=== PATIENT | female | born 1950 | race Caucasian/White ===

== ENCOUNTER 2016-09-23 09:00 | Inpatient (IN) | payer MEDICARE, SELFPAY ==
[~2016-09-23] VITALS: Ht 162.6 cm; Wt 85.5 kg
--- NOTE | ~2016-09-23 | DS ---
PATIENT'S NAME: CARLOS ARCOS [facility] AGE: 65 Y [address] ROOM: [address] [place], [place] [address] LOCATION: [facility] ADMIT DATE: 11/04/2016 Discharge Summary DISCHARGE DATE: 11/06/2016 FAMILY PHYSICIAN: Demi Lindsey MD ATTENDING PHYSICIAN: Clinton Becerril ADMITTING DIAGNOSIS: Osteoarthritis, right knee. PROCEDURE: Right total knee arthroplasty. COMORBIDITIES: 1. Depression and anxiety disorder. 2. Hypertension. 3. Hypothyroidism. 4. Hypercholesterolemia. 5. Diabetes type 2. HOSPITAL COURSE: The patient was admitted for total knee arthroplasty. [place] components were used. She had a triathlon asymmetric patella size 32, standard cement cruciate retaining size 5, femoral component X3 size 9-mm bearing, and a size 5 tibial component. Postoperatively, enteric-coated aspirin 325 p.o. daily was started for 30 days for DVT prophylaxis. Postop visit, the patient was feeling well. No nausea. No vomiting. Pain was controlled. Afebrile. Vitals are stable. Hemoglobin A1c was 6.2%. Postop day one, hemoglobin was 9.6. MOISTURE METER OPERATOR intact to the operative right foot. The patient had some issues with over sedation and narcotics were adjusted accordingly. There were some issues with patient self-medicating with her own medication, although she denied despite having pills found in the bed. Postop day 2, EHL intact. Neurovascular intact to the operative right leg. She is participating in PT. Mepilex continued for dressing. Arrangements were made for the patient to be transferred to TCU for continued supervised recovery. She continued to have complaints of poor pain control despite difficulty arousing the patient at time and slurred speech. All indicators of over sedation from pain medications. She was transferred to the TCU for continued supervised recovery. TRANSFER INSTRUCTIONS: Ambulate as tolerated. Continue PT, OT. Follow with Dr. Becerril on 11/06/2016. Blood sugars a.c. and h.s. OT as needed. O2 as needed for sats above 90. TYSON CHAPMAN FOR CLINTON BECERRIL MD PATIENT'S NAME: CAROLS ARCOS [facility] AGE: 65 Y [address] ROOM: [address] [address] LOCATION: G3 ADMIT DATE: 11/04/2016 Discharge Summary DISCHARGE DATE: 11/06/2016 FAMILY PHYSICIAN: Demi Lindsey MD ATTENDING PHYSICIAN: Clinton Becerril/aislinn /[id number] d: 11/12/16 0418 t: 11/18/16 1025, DISCHARGE SUMMARY
--- NOTE | ~2016-09-23 | OR ---
PATIENT'S NAME: CARLOS ARCOS [facility] AGE: 65 Y [address] ROOM: [facility] [place], [place] [address] LOCATION: [facility] ADMIT DATE: 11/04/2016 OR/Procedure Report DISCHARGE DATE: FAMILY PHYSICIAN: Demi Lindsey MD ATTENDING PHYSICIAN: Clinton Brambila SURGEON: Clinton Brambila MD INSPECTOR BALL POINTS: TYSON Owusu DATE OF PROCEDURE: 11/04/2016 PREOPERATIVE DIAGNOSIS: Varus osteoarthritis, right knee. POSTOPERATIVE DIAGNOSIS: Varus osteoarthritis, right knee. OPERATION: [facility] computer navigated tricompartmental cemented right total knee replacement with Baldo triathlon #5; femoral component; #5 tibial tray with a 9 mm X3 spacer and A32 patella. ANESTHESIA: Subarachnoid block. INDICATIONS: This is a 65-year-old female with right knee pain. No longer responsive to nonoperative measures such as steroid injections and radiographic evidence of varus gonarthrosis. DESCRIPTION OF PROCEDURE: The patient was brought to the operating room. When satisfactory spinal anesthesia had been established, her right lower extremity was prepped and draped in an aseptic manner. The skin over the anterior knee was injected with Rohit mix and an anterior incision made and carried down through the subcutaneous fat. Rohit mix was injected into the quadriceps tendon in the medial capsule and quadriceps splitting approach was utilized, so that the patella could be dislocated laterally and everted. The patella was measured at 22 mm and cut down to 14 mm. A 32 size appeared to fit the best. So, the 3 fixation holes were drilled and cut surface of the patella was protected with a trial 829. The distal femur was exposed and the ASM gantry was pinned to it. Hip flexion was registered and the center rotation of the hip was found. The intercondylar notch centered and AP femoral angle and medial and lateral femoral condyles were all registered. The alignment jig was placed and cut planned for 0 degrees of varus valgus with 5 degrees of flexion and 8 mm depth of cut. The distal femoral cutting block was pinned in place. The distal femoral cut was made. The footed sizing jig was placed against the cut surface of the femur and with 3 degrees of external rotation. The 2 provisional fixation holes were drilled. # 5 cutting block was selected and it was impacted home. The anterior femoral cut was made and it was satisfactory, so the anterior chamfer and posterior femoral chamfer cuts were all made. The tibial articular surface was exposed and soft tissues debrided. The ASM gantry was pinned to the tibial articular PATIENT'S NAME: CARLOS ARCOS [facility] AGE: 65 Y [address] ROOM: [place] [address] LOCATION: [facility] ADMIT DATE: 11/04/2016 OR/Procedure Report DISCHARGE DATE: FAMILY PHYSICIAN: Demi Lindsey MD ATTENDING PHYSICIAN: Clinton Brambila surface and the center of the tibia and midline of the tibia, medial and lateral tibial plateaus, and medial and lateral malleolar were all registered. The alignment jig was placed and cut planned for 9 degrees depth of cut off the lateral tibial plateau at 3 degrees of posterior slope and 0 degrees of varus and valgus. The cutting block was pinned in place and the tibial cut was made. The 9 mm spacer shipping checker was placed in the knee, did not seem to extend fully, so the tibia was recut 2 mm deeper. The spacer block was placed and the knee extended fully. The cut surface of the tibia was exposed and #5 tibial template appeared to fit the best. It was pinned in place, attempting to maintain rotation with the anterior tibial tubercle on the medial aspect of the centering lines. The tower was clipped onto the template and the plunger impacted home. Trial reduction was performed with a 9 mm spacer and the knee extended fully and was stable with varus and valgus stressing. The femoral lug holes were drilled and the trials removed. Cut bony surfaces were irrigated and dried while cement was mixed. The tibial tray was cemented into place 1st and excess cement removed while soft with a [place] elevator. 9 mm X3 spacer was impacted home. The femoral and patellar components were then cemented into place and excess cement removed while soft with a [place] elevator. It should be noted that prior to cementing the components, posterior capsule was injected with Rohit mix and hemostasis of the posterior capsule was achieved with the Aquamantys. Once the cement had set, excess cement was removed with an osteotome and mallet. The knee was taken through range of motion and the patella tracked well without any thumb pressure. The wound was irrigated copiously with saline and closed in layers using a running #1 Vicryl for the quadriceps tendon. The medial capsule was closed with a running #1 Vicryl by TYSON Thomas, and closed subcutaneous fat with a running 2-0 Vicryl and the skin closed with skin susan. Dressings were applied and the patient sent to the recovery area having tolerated the procedure well. MD BRYAN POLANCO/aislinn /[id number] d: 11/04/16 1716 t: 11/11/16 1134, OPERATIVE SUMMARY
--- NOTE | ~2016-09-23 | DS ---
PATIENT'S NAME: CARLOS ARCOS [facility] AGE: 65 Y [address] ROOM: [address] [place], [place] [address] LOCATION: [facility] ADMIT DATE: 11/04/2016 Discharge Summary DISCHARGE DATE: 11/06/2016 FAMILY PHYSICIAN: Demi Lindsey MD ATTENDING PHYSICIAN: Clinton Becerril ADMITTING DIAGNOSIS: Osteoarthritis, right knee. PROCEDURE: Right total knee arthroplasty. COMORBIDITIES: 1. Depression and anxiety disorder. 2. Hypertension. 3. Hypothyroidism. 4. Hypercholesterolemia. 5. Diabetes type 2. HOSPITAL COURSE: The patient was admitted for total knee arthroplasty. [place] components were used. She had a triathlon asymmetric patella size 32, standard cement cruciate retaining size 5, femoral component X3 size 9-mm bearing, and a size 5 tibial component. Postoperatively, enteric-coated aspirin 325 p.o. daily was started for 30 days for DVT prophylaxis. Postop visit, the patient was feeling well. No nausea. No vomiting. Pain was controlled. Afebrile. Vitals are stable. Hemoglobin A1c was 6.2%. Postop day one, hemoglobin was 9.6. GASOLINE PUMP MECHANIC intact to the operative right foot. The patient had some issues with over sedation and narcotics were adjusted accordingly. There were some issues with patient self-medicating with her own medication, although she denied despite having pills found in the bed. Postop day 2, EHL intact. Neurovascular intact to the operative right leg. She is participating in PT. Mepilex continued for dressing. Arrangements were made for the patient to be transferred to TCU for continued supervised recovery. She continued to have complaints of poor pain control despite difficulty arousing the patient at time and slurred speech. All indicators of over sedation from pain medications. She was transferred to the TCU for continued supervised recovery. TRANSFER INSTRUCTIONS: Ambulate as tolerated. Continue PT, OT. Follow with Dr. Becerril on 11/06/2016. Blood sugars a.c. and h.s. OT as needed. O2 as needed for sats above 90. TYSON CHAPMAN FOR CLINTON BECERRIL MD PATIENT'S NAME: CARLOS ARCOS [facility] AGE: 65 Y [address] ROOM: [address] [address] LOCATION: G3 ADMIT DATE: 11/04/2016 Discharge Summary DISCHARGE DATE: 11/06/2016 FAMILY PHYSICIAN: Demi Lindsey MD ATTENDING PHYSICIAN: Clinton Becerril/aislinn /[id number] d: 11/12/16 0418 t: 11/18/16 1245, DISCHARGE SUMMARY
[2016-10-12] MEDS ORDERED: MUCINEX D ER 61 EACH PO (10:24)
[2016-10-12] MEDS ORDERED: [UNRECOGNIZED DRUG - OTHER] PO (10:25)
[2016-10-12] MEDS ORDERED: LEVOTHROID (S100 MCG PO (10:25)
[2016-10-12] MEDS ORDERED: SINGULAIR10 MG PO (10:27)
[2016-10-12] MEDS ORDERED: KLONOPIN1 MG PO (10:27)
[2016-10-12] MEDS ORDERED: FLUVOXAMINE MA100 MG PO (10:27)
[2016-10-12] MEDS ORDERED: LAMICTAL200 MG PO (10:28)
[2016-10-12] MEDS ORDERED: PROZAC20 MG PO (10:30)
[2016-10-12] MEDS ORDERED: CALAN SR GENER240 MG PO (10:31)
[2016-10-12] MEDS ORDERED: ZOCOR40 MG PO (10:31)
[2016-10-12] MEDS ORDERED: SEROQUEL300 MG PO (10:32)
[2016-10-12] MEDS ORDERED: OMEPRAZOLE40 MG PO (10:32)
[2016-10-12] MEDS ORDERED: TOPAMAX25 MG PO (10:35)
[2016-10-12] MEDS ORDERED: AMBIEN10 MG PO (10:36)
[2016-10-12] MEDS ORDERED: ULTRAM50 MG PO (10:37)
[2016-10-12] MEDS ORDERED: ADVIL200 MG PO (10:38)
[2016-10-12] MEDS ORDERED: MOBIC15 MG PO (10:38)
[2016-10-12] MEDS ORDERED: TYLENOL EXTRA500 MG PO (10:39)
[2016-10-12] MEDS ORDERED: VITAMIN C1000 MG PO (10:42)
[2016-10-12] MEDS ORDERED: MULTI VITAMIN1 EACH PO (10:43)
[2016-10-12] MEDS ORDERED: CALCIUM 600 +1 EAC6 PO (10:43)
[2016-10-12] MEDS ORDERED: MILK OF MA400 MG/5 M PO (11:22)
[2016-11-04] MEDS ORDERED: NASACORT16.9 ML NOSE (06:53)
[2016-11-04] MEDS ORDERED: BENADRYL25 MG PO (15:10)
[2016-11-04] MEDS ORDERED: AIRBORNE TABLE1 EACH PO (15:11)
[2016-11-04] MEDS ORDERED: SALINE NASAL M126 ML NOSE (15:13)
--- NOTE | 2016-11-04 17:52 | NUR ---
Significant Event: PT ALERT AND ORIENTED. ARRIVED ON FLOOR AT 1045 FROM PACU. PT IS ANXIOUS MOST OF THE TIME. IS FUSSY ABOUT HER MEDS. WILL ONLY TAKE MEDS THAT A PERSCRIPTIONS. NO OVER THE COUNTER ONES. SHE CAN USE HER OWN SALINE NASAL SPRAY AND HER AIRBORNE IMMUNE MEDS. PT UP IN THE RECLINER THIS AFTERNOON. VOIDED X 2. ICE TO KNEE. LOTS OF PAIN AROUND 1730. VALIUM AND IV DILUADID GIEVN. TRANSFERS WELL. Follow up:
[2016-11-05 04:56] LABS: HEMATOCRIT 31.4 % (33.0-46.0); HEMOGLOBIN 9.6 g/dL (10.0-15.0)
--- NOTE | 2016-11-05 05:37 | NUR ---
Patient reported pain on surgical site and a little numbness on right foot throughout the shift. VS stable this shift. She was able to move from bed to commode 3X during shift with minimal assistance. Pain pills (1000mg tylentol and 5mg Roxicodone given at 0500 this am. Patient was not able to fall asleep till about 0100 this morning. RT placed patient on 2L of O2 for sats in the 70s this morning. Difficult pain control: multiple dilaudid
--- NOTE | 2016-11-05 06:08 | NUR ---
I have reviewed all of SN Patric's charting on this patient and I agree with it.
--- NOTE | 2016-11-05 12:31 | NUR ---
RECEIVED REFERRAL TO [facility] FOR PATIENT TO GO TO TCU TOMORROW FOR ONE WEEK. I SPOKE TO CAROL ON TCU SHE IS AWARE THAT DR. CAMPUZANO WOULD LIKE FOR PATIENT TO GO TO TCU TOMORROW. SHE REPORTS THAT THEY WILL HAVE A BED FOR PATIENT TOMORROW AT 1300. I SPOKE TO CARLOS AND PRESENTED TO HER THAT DR. LOZANO FEELS SHE WOULD BENEFIT FROM SHORT STAY ON TCU. PATIENT TELLS ME THAT SHE REALLY WANTS TO GO HOME BUT SHE IS WILLING TO GO TO TCU. I SPOKE TO Susie MEHTA AND UPDATED HER OF THE TIME PATIENT CAN GO TO TCU TOMORROW.
--- NOTE | 2016-11-05 14:35 | NUR ---
NOTIFIED PATIENT'S SPOUSE NATALIE AND UPDATED HIM THAT RAFIA WILL BE GOING TO TCU. HE IS IN AGREEMENT TO THIS PLAN.
--- NOTE | 2016-11-05 20:06 | NUR ---
Significant Event: VERY SLEEPY HTIS AM, QUESTION IF PATIENT WAS SELF MEDICATING, RENETTA AUGUSTINE PERSONAL FOUND HER PURSE WITH NEDS IN IT,,,HAD TORADOL 15 MG AT 1130, VALIUM 2.5 MG PO AT 1550, ROXICODONE 5 MG 1 TAB AT 1730..., DRSG TO KNEE D/I, CSM GOOD ICE ON....REFUSED TO SIT IN RECLINER, YELLS/SCREAMS WHEN GETTING HER OUT OF BED,,,,HAD DUL SUPP AND MOM AT 1730... Follow up:
--- NOTE | 2016-11-06 03:15 | NUR ---
Shift Summary: Patient has not had any pain medication this shift. She was slightly drowsy at the beginning of the shift and and only had pain with movement. She wanted to take all of her scheduled bedtime meds including her ambien over having a pain medication. She has slept very well all shift, but does require 2L O2 for sats in lower 80s on room air when sleeping. Patient needs a lot of verbal cues and encouragement with transfers and ambulation. Is a two assist. She gets emotional over everything. Has had 2 large BM's this shift. Going to TCU at 1100 today.
--- NOTE | 2016-11-06 06:49 | NUR ---
[id number] Supervised [facility] Intelligence Manager.
--- NOTE | 2016-11-06 08:39 | NUR ---
Patient had a R) total knee done on 11/04/[address]ambila. Dressing C/D/I. EZwrap Ice applied. WBAT to R) leg. Up with 2 assist with walker to bedside commmode. CSM WNL. 2L/O2 for O2 sats are in lower 80's on RA. No difficulty voiding. Had large BM 11/06/16. Patient needs lots of verbal cues and encouragement with transfers and ambulation.
== END 2016-11-06 13:39 | DRG 470 ==
LOC: G3N 11-04 05:50
PROVIDERS: ADMIT Orthopaedic Surgery
PROC: 0SRC0J9 Replacement of Right Knee Joint with Synthetic Substitute, Cemented, Open Approach (ICD-10-PCS; principal; 2016-11-04)
PROC: 8E0YXBZ Computer Assisted Procedure of Lower Extremity (ICD-10-PCS; principal; 2016-11-04)
DX: M17.11 Unilateral primary osteoarthritis, right knee (principal); I10 Essential (primary) hypertension; M21.161 Varus deformity, not elsewhere classified, right knee; E78.5 Hyperlipidemia, unspecified; E11.9 Type 2 diabetes mellitus without complications; E03.9 Hypothyroidism, unspecified; M54.5 Low back pain; Z96.652 Presence of left artificial knee joint; F32.9 Major depressive disorder, single episode, unspecified; F41.9 Anxiety disorder, unspecified; R40.0 Somnolence; R47.81 Slurred speech; T40.2X5A Adverse effect of other opioids, initial encounter; J30.2 Other seasonal allergic rhinitis; Z79.899 Other long term (current) drug therapy; E66.9 Obesity, unspecified; Z68.32 Body mass index [BMI] 32.0-32.9, adult; K21.9 Gastro-esophageal reflux disease without esophagitis; K59.00 Constipation, unspecified
CPT/HCPCS: C1713; C1776; J0171; J0690; J0735; J1170; J1885; J2001; J2250; J2405; J2795; J7030; J7040; J7120

== ENCOUNTER → 2016-10-22 | Outpatient (CLI) | payer MEDICARE ==
[~2016-10-22] MED LIST: ADVIL200 MG PO; AIRBORNE TABLE1 EACH PO; AMBIEN10 MG PO; ASPIRIN325 MG PO; BENADRYL25 MG PO; CALAN SR GENER240 MG PO; CALCIUM 600 +1 EAC6 PO; DOXYCYCLINE100 MG PO; FLUVOXAMINE MA100 MG PO; KLONOPIN1 MG PO; LAMICTAL200 MG PO; LEVOTHROID (S100 MCG PO; MILK OF MA400 MG/5 M PO; MOBIC15 MG PO; MUCINEX D ER 61 EACH PO; MULTI VITAMIN1 EACH PO; NASACORT16.9 ML NOSE; NORCO 5-325 TA1 EACH PO; OMEPRAZOLE40 MG PO; PROZAC20 MG PO; SALINE NASAL M126 ML NOSE; SEROQUEL300 MG PO; SINGULAIR10 MG PO; TOPAMAX25 MG PO; TYLENOL EXTRA500 MG PO; ULTRAM50 MG PO; VALIUM5 MG PO; VITAMIN C1000 MG PO; ZOCOR40 MG PO; [UNRECOGNIZED DRUG - OTHER] PO
== END | disposition disaster alternative care site (69) ==
LOC: GNJRC 10:13
DX: Z01.812 Encounter for preprocedural laboratory examination (principal); Z96.651 Presence of right artificial knee joint

== ENCOUNTER 2016-11-06 14:24 | Inpatient (IN) | payer MEDICARE, OTHER ==
[~2016-11-06] VITALS: Ht 162.6 cm; Wt 89.4 kg
--- NOTE | ~2016-11-06 | DS ---
PATIENT'S NAME: CARLOS ARCOS [facility] AGE: 65 Y [address] ROOM: [address] [place], [place] [address] LOCATION: [facility] ADMIT DATE: 11/04/2016 Discharge Summary DISCHARGE DATE: 11/06/2016 FAMILY PHYSICIAN: Demi Lindsey MD ATTENDING PHYSICIAN: Clinton Becerril ADMITTING DIAGNOSIS: Osteoarthritis, right knee. PROCEDURE: Right total knee arthroplasty. COMORBIDITIES: 1. Depression and anxiety disorder. 2. Hypertension. 3. Hypothyroidism. 4. Hypercholesterolemia. 5. Diabetes type 2. HOSPITAL COURSE: The patient was admitted for total knee arthroplasty. [place] components were used. She had a triathlon asymmetric patella size 32, standard cement cruciate retaining size 5, femoral component X3 size 9-mm bearing, and a size 5 tibial component. Postoperatively, enteric-coated aspirin 325 p.o. daily was started for 30 days for DVT prophylaxis. Postop visit, the patient was feeling well. No nausea. No vomiting. Pain was controlled. Afebrile. Vitals are stable. Hemoglobin A1c was 6.2%. Postop day one, hemoglobin was 9.6. CATHODE RAY TUBE ASSEMBLER intact to the operative right foot. The patient had some issues with over sedation and narcotics were adjusted accordingly. There were some issues with patient self-medicating with her own medication, although she denied despite having pills found in the bed. Postop day 2, EHL intact. Neurovascular intact to the operative right leg. She is participating in PT. Mepilex continued for dressing. Arrangements were made for the patient to be transferred to TCU for continued supervised recovery. She continued to have complaints of poor pain control despite difficulty arousing the patient at time and slurred speech. All indicators of over sedation from pain medications. She was transferred to the TCU for continued supervised recovery. TRANSFER INSTRUCTIONS: Ambulate as tolerated. Continue PT, OT. Follow with Dr. Becerril on 11/06/2016. Blood sugars a.c. and h.s. OT as needed. O2 as needed for sats above 90. TYSON CHAPMAN FOR CLINTON BECERRIL MD PATIENT'S NAME: CARLOS ARCOS [facility] AGE: 65 Y [address] ROOM: [address] [address] LOCATION: G3 ADMIT DATE: 11/04/2016 Discharge Summary DISCHARGE DATE: 11/06/2016 FAMILY PHYSICIAN: Demi Lindsey MD ATTENDING PHYSICIAN: Clinton Becerril/aislinn /[id number] d: 11/12/16 0418 t: 11/18/16 1025, DISCHARGE SUMMARY
--- NOTE | ~2016-11-06 | DS ---
PATIENT'S NAME: CARLOS ARCOS [facility] AGE: 65 Y [address] ROOM: [address] [place], [place] [address] LOCATION: [facility] ADMIT DATE: 11/04/2016 Discharge Summary DISCHARGE DATE: 11/06/2016 FAMILY PHYSICIAN: Demi Lindsey MD ATTENDING PHYSICIAN: Clinton Becerril ADMITTING DIAGNOSIS: Osteoarthritis, right knee. PROCEDURE: Right total knee arthroplasty. COMORBIDITIES: 1. Depression and anxiety disorder. 2. Hypertension. 3. Hypothyroidism. 4. Hypercholesterolemia. 5. Diabetes type 2. HOSPITAL COURSE: The patient was admitted for total knee arthroplasty. [place] components were used. She had a triathlon asymmetric patella size 32, standard cement cruciate retaining size 5, femoral component X3 size 9-mm bearing, and a size 5 tibial component. Postoperatively, enteric-coated aspirin 325 p.o. daily was started for 30 days for DVT prophylaxis. Postop visit, the patient was feeling well. No nausea. No vomiting. Pain was controlled. Afebrile. Vitals are stable. Hemoglobin A1c was 6.2%. Postop day one, hemoglobin was 9.6. GRADUATE CIVIL ENGINEER intact to the operative right foot. The patient had some issues with over sedation and narcotics were adjusted accordingly. There were some issues with patient self-medicating with her own medication, although she denied despite having pills found in the bed. Postop day 2, EHL intact. Neurovascular intact to the operative right leg. She is participating in PT. Mepilex continued for dressing. Arrangements were made for the patient to be transferred to TCU for continued supervised recovery. She continued to have complaints of poor pain control despite difficulty arousing the patient at time and slurred speech. All indicators of over sedation from pain medications. She was transferred to the TCU for continued supervised recovery. TRANSFER INSTRUCTIONS: Ambulate as tolerated. Continue PT, OT. Follow with Dr. Becerril on 11/06/2016. Blood sugars a.c. and h.s. OT as needed. O2 as needed for sats above 90. TYSON CHAPMAN FOR CLINTON BECERRIL MD PATIENT'S NAME: CARLOS ARCOS [facility] AGE: 65 Y [address] ROOM: [address] [address] LOCATION: G3 ADMIT DATE: 11/04/2016 Discharge Summary DISCHARGE DATE: 11/06/2016 FAMILY PHYSICIAN: Demi Lindsey MD ATTENDING PHYSICIAN: Clinton Becerril/aislinn /[id number] d: 11/12/16 0418 t: 11/18/16 1245, DISCHARGE SUMMARY
--- NOTE | ~2016-11-06 | DS ---
PATIENT'S NAME: CARLOS ARCOS [facility] AGE: 65 Y [address] ROOM: [address] [place], [place] [address] LOCATION: [facility] ADMIT DATE: 11/04/2016 Discharge Summary DISCHARGE DATE: 11/06/2016 FAMILY PHYSICIAN: Demi Lindsey MD ATTENDING PHYSICIAN: Clinton Becerril ADMITTING DIAGNOSIS: Osteoarthritis, right knee. PROCEDURE: Right total knee arthroplasty. COMORBIDITIES: 1. Depression and anxiety disorder. 2. Hypertension. 3. Hypothyroidism. 4. Hypercholesterolemia. 5. Diabetes type 2. HOSPITAL COURSE: The patient was admitted for total knee arthroplasty. [place] components were used. She had a triathlon asymmetric patella size 32, standard cement cruciate retaining size 5, femoral component X3 size 9-mm bearing, and a size 5 tibial component. Postoperatively, enteric-coated aspirin 325 p.o. daily was started for 30 days for DVT prophylaxis. Postop visit, the patient was feeling well. No nausea. No vomiting. Pain was controlled. Afebrile. Vitals are stable. Hemoglobin A1c was 6.2%. Postop day one, hemoglobin was 9.6. HYDROCHLORIC AREA SUPERVISOR intact to the operative right foot. The patient had some issues with over sedation and narcotics were adjusted accordingly. There were some issues with patient self-medicating with her own medication, although she denied despite having pills found in the bed. Postop day 2, EHL intact. Neurovascular intact to the operative right leg. She is participating in PT. Mepilex continued for dressing. Arrangements were made for the patient to be transferred to TCU for continued supervised recovery. She continued to have complaints of poor pain control despite difficulty arousing the patient at time and slurred speech. All indicators of over sedation from pain medications. She was transferred to the TCU for continued supervised recovery. TRANSFER INSTRUCTIONS: Ambulate as tolerated. Continue PT, OT. Follow with Dr. Becerril on 11/06/2016. Blood sugars a.c. and h.s. OT as needed. O2 as needed for sats above 90. TYSON CHAPMAN FOR CLINTON BECERRIL MD PATIENT'S NAME: CARLOS ARCOS [facility] AGE: 65 Y [address] ROOM: [address] [address] LOCATION: [facility] ADMIT DATE: 11/04/2016 Discharge Summary DISCHARGE DATE: 11/06/2016 FAMILY PHYSICIAN: Demi Lindsey MD ATTENDING PHYSICIAN: Clinton Becerril /[id number] d: t: 11/16/16 1354, DISCHARGE SUMMARY
--- NOTE | ~2016-11-06 | ENPV ---
Vascular Lower Extremities DVT Study Procedure Demographics Patient Name CARLOS ARCOS Date of Study 11/09/2016 Patient Number [id number] Gender Female Date of 1950 Age 65 Visit Number [id number] Height Accession Number [id number] Weight Room Number G3427 BSA BMI Referring Brambila Clinton Mendes MD Physician MD Physician Physician Ordering Physician Track Dresser Games Manager Love Richardson [facility] Conclusions Summary Negative for DVT Left peroneal calf vessels were poorly visualized. Procedure Type of Study: Veins:Lower Extremities DVT Study, Lower Extremity Right. Appropriate Use Criteria:7 Patient Status:Routine. Study Location:Inpatient Portable. Technical Quality:Adequate visualization. Velocities are measured in cm/s ; Diameters are measured in cm Right Lower Extremities DVT Study Measurements Right 2D and Doppler Measurements + + + + +------+------+ + !Location !Visualized!Compressibility!Thrombosis!Signal!Reflux!Reflux ! ! ! ! ! ! ! !(sec) ! + + + + +------+------+ + !GSV Thigh !Yes !Yes !None !Phasic!No ! ! + + + + +------+------+ + !Common !Yes !Yes !None !Phasic!No ! ! !Femoral ! ! ! ! ! ! ! + + + + +------+------+ + !Prox !Yes !Yes !None !Phasic!No ! ! !Femoral ! ! ! ! ! ! ! + + + + +------+------+ + !Mid Femoral!Yes !Yes !None !Phasic!No ! ! + + + + +------+------+ + !Dist !Yes !Yes !None !Phasic!No ! ! !Femoral ! ! ! ! ! ! ! + + + + +------+------+ + !Popliteal !Yes !Yes !None !Phasic!No ! ! + + + + +------+------+ + !Gastroc !Yes !Yes !None !Phasic!No ! ! + + + + +------+------+ + !PTV !Yes !Yes !None !Phasic!No ! ! + + + + +------+------+ + !Peroneal !Yes !Yes !None !Phasic!No ! ! + + + + +------+------+ + Impressions Left Impression Negative for DVT Left peroneal calf vessels were poorly visualized. Signature dtt: ADAM [id number] dtd: 11/09/16 0822 Physician Self Edit
--- NOTE | ~2016-11-06 | DS ---
PATIENT'S NAME: CARLOS ARCOS [facility] AGE: 65 Y [address] ROOM: [address] [place], [place] [address] LOCATION: [facility] ADMIT DATE: 11/06/2016 Discharge Summary DISCHARGE DATE: 11/13/2016 FAMILY PHYSICIAN: Demi Lindsey MD ATTENDING PHYSICIAN: Clinton Brambila Terri was transferred to TCU for continued supervised recovery after total knee arthroplasty and monitoring of her type 2 diabetes, hypertension, anxiety and depression, hypothyroidism, and continued PT. She was stable after transfer. She made continued steady progress in her rehab and met rehab goals. Aspirin was continued for DVT prophylaxis. Hydrocodone 5/325 was used for pain control. Wound looked great postoperatively. She was placed on doxycycline for a presumptive diagnosis of bacterial rhinosinusitis for a total course of 7 days. The patient had susan removed on postoperative day 7, and the patient was discharged to home. DISCHARGE INSTRUCTIONS: Follow up with myself in a week. Followup with Dr. Brambila to be scheduled. Follow up with family doctor on 11/19 at 1500 hours. Continue prehospitalization medication regimen with the following additions: Aspirin 325 p.o. daily, stop on 12/03. Additional prescriptions were written for her doxycycline for her rhinosinusitis to complete a 7-day course. [place] 5/325, dispensed 50. Valium 5 mg, dispensed 10, no refills, for muscle spasms. Prescription was written for physical therapy twice a week for 4 weeks, range of motion and strengthening, weight bear as tolerated. TYSON CHAPMAN FOR MD MAYO POLANCO/aislinn /[id number] d: 11/19/16 0654 t: 11/25/16 1029, DISCHARGE SUMMARY
[~2016-11-06 14:24] MED LIST changes: -ASPIRIN325 MG PO; -DOXYCYCLINE100 MG PO; -NORCO 5-325 TA1 EACH PO; -VALIUM5 MG PO
--- NOTE | 2016-11-06 15:59 | NUR ---
D: Nursing Admission Summary I: Nursing interventions provided to support the patient's individual plan of care R: MOBILITY-- 2 assist to commmode NUTRITION-- Diabetic diet. Accuchecks 0700 and 2100. with mild s/s insulin SKIN/INCISIONS/WOUNDS-- Right knee--Mepilex dressing. Change PRN SELF CARES-- Needs assistance with ADL's. BOWEL/BLADDER-- Continent of bowel and bladder. RESPIRATORY-- Oxygen at 2 liters. PAIN-- Taking scheduled Tylenol and PRN [facility]-- Has good family support COGNITION-- Alert and oriented SENSORY IMPAIRMENTS/DENTAL NEEDS: Wears glasses NEED FOR BED/MOVEMENT ALARM: As per hospital protocol DISMISSAL PLANS: Back to home Other: P: Current plan of care reviewed and updated Jessika Shultz RN 11/06/16
--- NOTE | 2016-11-07 03:22 | NUR ---
Significant Event: Patient alert and oriented x3. Transferred with 2 assist to commode. Does well with encouragement. Mepilex to right knee clean, dry and intact. CSM within normal limits. Right hand IV saline locked. Continues on 2 liters oxygen. Received scheduled tylenol for pain. Slept well all night. Foot pumps on Follow up: increase activity, monitor pain, wean oxygen
--- NOTE | 2016-11-07 14:11 | NUR ---
Significant Event: Alert/oriented. Drowsy this am, but able to verbally arouse. Hypotensive, 94/49, 95/42; Encouraged fluids once more awake, recheck bp 111/58. Denies dizziness. Sats 90-92% on 2L NC. Right knee mepilex dressing CDI, ice packs to knee on/off throughout shift. WBAT 1-2a pivot transfer, stiff. Takes Tramadol and scheduled ES tylenol for pain control. Accuchecks BID. Refuses offers for am cares/ up to chair until later this afternoon. Follow up:
--- NOTE | 2016-11-08 01:23 | NUR ---
Significant Event: Patient c/o pain first few hours of the evening after tramadol and cried with any movement. Notified physician of uncontrollable pain and Valium was given per order. Pain was more tolerable the rest of the evening. Ambulates to bathroom 1A with walker and gait belt. BID accuchecks and no s/s insulin needed. 2L O2 NC. Mepilex intact to knee. A/Ox3 & uses call light without difficulty. Patient is very anxious at times. Follow up:
--- NOTE | 2016-11-08 14:05 | NUR ---
Significant Event: Alert/oriented. 1a walker gb. Mepilex dressing to right knee incision CDI. Dr Brambila here to see this am, tramadol changed to prn q4h. Doppler ultrasound tomorrow 11/09/16 to RLE. Follow up:
--- NOTE | 2016-11-09 01:15 | NUR ---
Significant Event: Was better tonight. Is alert & oriented. Behaviors weren't as visible tonight. She was instructed to take deep breathes and remain calm and it seemed to help. He had a NOrco @ hs and 2300 tylenol was held d/t sleeping soundly and over tylenol limit. Up with 1 assist/gb/walker. Uses ice to knee. Has been c/o soreness in rt calf, so ultrasound will be done in am to r/o blood clot. Mepilex intact to rt knee. ACHS blood sugars. Is on lovenox. GEts miralax in the morning. Refused @ hs. Follow up:
--- NOTE | 2016-11-09 13:59 | NUR ---
Social Assessment Family: Patient is to her Tamir Green in [place], [place]. Patient states she has 2 children, one in [place] and one in [facility] [place] [facility] (near [place], [place]) with 6 grandchildren. Prior Living Situation: Patient lived with her in her home. She previously took care of her 's needs due to his lung disease. Reason for Stay: Patient is on TCU for PT/OT/RT, accuchecks, mild sliding scale insulin, and pain control following a right total knee replacement. Physicians: Kosta/Isaac Lindsey Financial: Medicare only Advanced Directive: Not on file Patient is a full code Admitted Date: 11/06/16 Admitted From: Acute Care Patient Rights Recieved: Yes, upon admission to TCU Legal: N/A Spiritual: SDO [facility] DME: Patient has a 4WW which is at bedside. Patient states she would like to return to her home in [place], [place]. May benefit to in home therapy due to being on in home O2. 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 Patient has an Ipad at bedside and a phone which she uses to communicate with friends and family.
--- NOTE | 2016-11-09 14:41 | NUR ---
Significant Event: PATIENT AMBULATES WITH 1 SBA USING GAIT BELT AND WLKER. NEEDS TO BE ENCOURAGED TO DO THINGS FOR HERSELF AND TO PARTICIPATE WITH THERAPIES. DID PARTICIPATE WITH THERAPIES ORDERED TODAY. EXTRA STRENGTH TYLENOL NOW PRN. NORCO AND VALIUM GIVEN X1 THIS SHIFT AND TRMADOL GIVEN X2 THIS SIHFT. NEW ORDER FOR ZOFRAN ODT GIVEN X1 THIS SHIFT FOR C/O NAUSEA. MEPILEX REMAINS INTACT TO RIGHT KNEE. REFUSES FOOT PUMPS DURING THE DAY. PLEASANT AND COOPERATIVE WITH CARES. Follow up:
--- NOTE | 2016-11-10 03:49 | NUR ---
Significant Event: Patient is alert and oriented x 3. Up with 1 assist, walker, and gait belt. Dressing to right knee is clean, dry, and intact. CSM to right lower extremity is WNL. Anxious/nervous/tearful at times due to pain. [place] given last at 2031, Valium last at 2043. Ambien given last night per patient request. Patient complained of migraine rating it 10/10, MD called, Imitrex dose given x 1 at 2027. BID accuchecks. Encourage patient to do things for herself. Follow up:
--- NOTE | 2016-11-10 11:07 | NUR ---
Significant Event: AMBULATES WITH 1 SBA USING GAIT BELT AND WALKER. 1 NORCO GIVEN PRIOR TO SHOWER WITH OT AND VALIUM GIVEN WITH 0900 MEDS. CONTINUES TO BE VERY ANXIOUS AND APPREHENSIVE ABOUT DOING EVERYTHING. PARTICPATED WITH THERAPIES ORDERED. PLEASANT AND COOPERATIVE WITH CARES. Follow up:
--- NOTE | 2016-11-10 16:21 | NUR ---
visited with patient re: possible d/c to home end of this week on Wednesday11-13-16, as PT indicated patient doing good with therapy. patient began to cry and relayed the following reasons why she would not be ready to leave TCU on Wednesday----- stairs, kitchen home mgt skills, laundry, cooking, dishes, no doctor has seen her stitches yet, and she has pain. informed patient that I would relay the above requests to therapy for them to work on. Tried to problem solve with dishes - paper plates, cooking-buy microwave meals or crock pot meals, having family help at home, etc.... but patient resistant to any solutions to her identified problems. nursing indicated to SW that patients plans to visit on wednesday. This was relayed to patient and she said she would like to stay until Wednesday11-16-16. SW attempted to reach x2, and no answer or ability to leave a message. SW will discuss goals with OT/PT and pain control with nursing to see what date can be set for d/c to home with . SW relayed to patient that usually rounds on and he could stop in and see her.
--- NOTE | 2016-11-11 03:42 | NUR ---
Significant Event: Patient alert and oriented x3. Got up to bathroom with one assist and walker. WBAT. Mepilex dry and intact to right knee. Foot pumps on but refused to have right leg elevated. CSM within normal limits. Encouraged and re-educated on bed exercises. Vitals stable, on room air. Valium given with hs meds and has slept well this shift and not called for any needs. Requests to sleep as long as possible this morning. Follow up:
--- NOTE | 2016-11-11 12:53 | NUR ---
Significant Event: Alert/oriented. SBA walker/gb. Right knee incision with susan approx. and open to air. Takes norco and valium q6h and ultram prn in between. Accuchecks BID. Plan for home tomorrow or wednesday Follow up:
--- NOTE | 2016-11-11 18:03 | NUR ---
visited with staff today, patient has done stairs, is working with OT on kitchen management. Visited with patient who is in agreement to going home on Wednesday11-13-16. OT indicates patient will need a sock aid, shoe horn, umbrella frame maker or a hip kit that includes all these items. patient states her has a sock aid already. listing of DME providers given to patient with their address and phone #. Extended tub bench is recommended by OT and SW informed patient she may want to explore [employer] or [employer] as [employer] can be cheaper than DME coompany for ext tub bench. states she will get ahold of her barbara and tell him she is going home on Wednesday. SW tried 4x today to reach spouse and no answer and no answering machine to leave a message.
--- NOTE | 2016-11-12 03:07 | NUR ---
Significant Event: Patient alert and oriented x3. Up with SBA and walker. WBAT. Ning to right knee open to air. Edges approximated and no drainage. CSM within normal limits. Ultram, norco, and valium all given for pain last night. Anxious at times. Requesting to have dr goodson see about her sinus infection. Cooperative with cares Follow up: home wednesday
[2016-11-12] MEDS ORDERED: DOXYCYCLINE100 MG PO (11:02)
[2016-11-12] MEDS ORDERED: NORCO 5-325 TA1 EACH PO (11:52)
[2016-11-12] MEDS ORDERED: VALIUM5 MG PO (11:52)
[2016-11-12] MEDS ORDERED: ASPIRIN325 MG PO (11:55)
--- NOTE | 2016-11-12 13:46 | NUR ---
patient states her or a friend will be here after lunch tomorrow to take her home. onvisited with patient this am. Patient made Mod I in her room today. walkig 200' and has done stairs. home tomorrow with Rx for outpatient PT. Patient in agreement to plan.
--- NOTE | 2016-11-12 15:49 | NUR ---
Significant Event: A/0 X 3, TEARFUL AND CRIES WITH THERAPY, MOD I IN ROOM, BLOOD SUGARS 0700, 1700. PT/OT SERVICES, SHOWER THIS AM WITH THERAPY, PLAN TO GO HOME TOMORROW AROUND 1. *NEW ORDERS TO REMOVE FINN TOMORROW PLACE STERISTRIPS. LAST NORCO GIVEN AT 1300, VALIUM GIVEN AT 0730. ULTRAM AT 1100. ICE TO KNEE UPON REQUEST. WALKS WITH WALKER. TAKES PILLS WHOLE WITH WATER. Follow up:
--- NOTE | 2016-11-12 21:01 | NUR ---
C/o 05/18 pain to R) knee. Has had Onset and valium 50 minitues ago. Additional Tylenol given approx 2099. No drainage. [place] intact. 1+ edema. Minimal redness. Encouraged to use ice and elevation. Refuses to keep ice or elevate. Keeps taking ice packs off.
--- NOTE | 2016-11-13 01:00 | NUR ---
D: Nursing Discharge Summary I: Nursing interventions provided to support the patient's individual plan of care R: MOBILITY-- Mod I in room. Steady on feet and uses walker. NUTRITION-- Diabetic diet. Eats well SKIN/INCISIONS/WOUNDS-- Rt knee has susan intact and healing well SELF CARES-- Does own cares in bathroom BOWEL/BLADDER-- Continent of bowel & bladder RESPIRATORY-- Lungs clear PAIN-- per patient poorly controlled and wants more medication, but goes to sleep and sleeps the night. Impatient in letting the medications work PSYCHOSOCIAL-- Worried about enough help at home. Lives with spouse. COGNITION-- Alert & oriented SPECIAL NEEDS-- walker for stability TEACHING NEEDS-- re: pain control and care of incision INFECTION CONCERNS: None at this time DISMISSAL PLANS: Home with spouse
--- NOTE | 2016-11-13 16:24 | NUR ---
PT DISCHARGED TO HOME PER PRIVATE VEHICLE. MEDICATIONS AND DISCHARGE INSTRUCTIONS REVIEWED. MOD I IN ROOM WITH PERSONAL WALKER, INDEPENDANT WITH DRESSING AND ADLS. 1 TAB NORCO GIVEN AT 1330. STERISTRIPS IN PLACE TO R)KNEE. ALL PERSONAL BELONGINGS SENT WITH PATIENT.
== END 2016-11-13 15:00 | disposition disaster alternative care site (69) | DRG 561 ==
LOC: GSNF 14:24
PROVIDERS: ADMIT Orthopaedic Surgery
DX: Z47.1 Aftercare following joint replacement surgery (principal); I10 Essential (primary) hypertension; E11.9 Type 2 diabetes mellitus without complications; F32.9 Major depressive disorder, single episode, unspecified; J32.9 Chronic sinusitis, unspecified; E03.9 Hypothyroidism, unspecified; F41.9 Anxiety disorder, unspecified; Z96.651 Presence of right artificial knee joint; E78.00 Pure hypercholesterolemia, unspecified